=== PATIENT | male | born 1995 | race Caucasian/White ===

== ENCOUNTER 2016-08-22 22:21 | Emergency (ER) | payer OTHER ==
[2016-08-22 22:28] VITALS: BP 147/80; PULSE 93; RESP 20; TEMP 98.3
--- NOTE | 2016-08-22 23:20 | XR ---
EXAMINATION TYPE: XR chest 2V DATE OF EXAM: 08/22/2016 11:14 PM COMPARISON: NONE HISTORY: Chest pain TECHNIQUE: Frontal and lateral views of the chest are obtained. FINDINGS: Heart and mediastinum are normal. Lungs are clear. Diaphragm is normal. There are chest le ads. Bony thorax appears normal. IMPRESSION: Normal chest
--- NOTE | 2016-08-22 23:37 | ED ---
Chest Pain HPI - General Chief Complaint: Chest Pain Stated Complaint: chest pain/tingling arms Time Seen by Provider: 08/22/16 22:36 Source: patient Mode of arrival: wheelchair Limitations: no limitations - History of Present Illness Initial Comments: 20-year-old male with past medical history of a heart murmur presented for evaluation of sudden onset substernal sharp chest pain with radiation to his left arm that occurred while he was cooking. He states that it lasted 3-4 minutes and resolved into a dull ache without radiation. He states there is associated nausea and mild shortness of breath and feeling of exhaustion. His mother was present for the event and kept advising the patient to come to the ED until he finally acquiesced and came to the ED for further evaluation. He states that his current symptoms are very minimal with a mild pressure in his substernal chest area. He otherwise has no other symptoms at this time. He has been evaluated in the past for heart murmur that he had as a child which progressively decreased until resolution about 10 or more years ago. He states that at that time he had been placed on a heart monitor which revealed no significant abnormalities. - Related Data Home Medications Medication Instructions Recorded Confirmed Aspirin EC [Ecotrin Low Dose] 81 mg PO DAILY PRN 08/22/16 08/22/16 Allergies Allergy/AdvReac Type Severity Reaction Status Date / Time Penicillins Allergy Anaphylaxis Verified 08/22/16 22:41 Review of Systems ROS Statement: Those systems with pertinent positive or pertinent negative responses have been documented in the HPI. ROS Other: All systems not noted in ROS Statement are negative. Constitutional: Denies: fever, chills Eyes: Denies: eye discharge, vision change ENT: Denies: ear pain, throat pain Respiratory: Reports: dyspnea. Denies: cough, wheezes, hemoptysis, stridor Cardiovascular: Reports: chest pain. Denies: palpitations, dyspnea on exertion Gastrointestinal: Reports: nausea. Denies: abdominal pain, vomiting Genitourinary: Denies: urgency, dysuria Musculoskeletal: Denies: back pain, joint swelling Skin: Denies: rash, lesions Neurological: Denies: headache, weakness Psychiatric: Denies: anxiety, depression Hematological/Lymphatic: Denies: easy bruising, swollen glands EKG Findings - EKG Comments: EKG Findings:: EKG shows normal sinus rhythm with an incomplete right bundle branch block with a ventricular rate of 87, ALEXANDER 154, QRS 104, QTC 435 Past Medical History Additional Past Medical History / Comment(s): heart murmur History of Any Multi-Drug Resistant Organisms: None Reported Past Surgical History: No Surgical Hx Reported Past Psychological History: No Psychological Hx Reported Smoking Status: Never smoker Past Alcohol Use History: None Reported Past Drug Use History: None Reported General Exam Limitations: no limitations General appearance: alert, in no apparent distress Head exam: Present: atraumatic, normocephalic Eye exam: Present: normal appearance, PERRL, EOMI ENT exam: Present: normal exam, normal oropharynx, mucous membranes moist. Absent: mucous membranes dry Neck exam: Present: normal inspection. Absent: tenderness, meningismus Respiratory exam: Present: normal lung sounds bilaterally. Absent: respiratory distress, wheezes, rales Cardiovascular Exam: Present: regular rate, normal rhythm. Absent: bradycardia , tachycardia, irregular rhythm GI/Abdominal exam: Present: soft. Absent: distended, tenderness, guarding Rectal exam: Present: deferred Extremities exam: Present: normal inspection, full ROM, tenderness Back exam: Present: normal inspection, full ROM Neurological exam: Present: alert, altered, oriented X3, normal gait Psychiatric exam: Present: normal affect, normal mood Skin exam: Present: warm, dry, intact Course Vital Signs 08/22/16 22:26 Temperature 98.3 F Pulse Rate 93 Respiratory 20 Rate Blood Pressure 147/80 O2 Sat by Pulse 97 Oximetry Chest Pain [facility] 20-year-old male with past medical history of heart murmur that is since resolved present for evaluation of 3-4 minutes of sudden onset sharp substernal chest pain that is resolved prior to arrival to the ED. Physical examination reveals a well-appearing, non-anxious, 20-year-old male with normal peripheral pulses, normal heart sounds without murmurs rubs or gallops, and clear lung sounds. The patient does not meet any perc criteria and therefore further workup for PE is not necessary. EKG shows an incomplete right bundle branch block but no indications for any other abnormalities. Chest x-ray shows no acute process. This is discussed with the patient and through shared decision making it was decided that he would be discharged with instructions to follow-up with his primary care physician but return to this facility if his symptoms should worsen or persist. The patient and his mother acknowledged an understanding of this information and agreed with this plan of care. Disposition Clinical Impression: Non-cardiac chest pain Disposition: HOME SELF-CARE Condition: Stable Instructions: Chest Pain (ED) Referrals: Meir Alaniz MD [Primary Care Provider] - 1-2 days Time of Disposition: 23:37
== END 2016-08-22 23:49 | disposition home or self-care (01) ==
LOC: EC 22:21
DX: R07.89 Other chest pain (principal); I45.10 Unspecified right bundle-branch block; R01.1 Cardiac murmur, unspecified; Z79.82 Long term (current) use of aspirin; R11.0 Nausea; R06.02 Shortness of breath; R53.83 Other fatigue; Z88.0 Allergy status to penicillin
CPT/HCPCS: 71020; 93005; 99285

== ENCOUNTER 2017-10-02 18:34 | Emergency (ER) | payer OTHER ==
[2017-10-02] MEDS ORDERED: ACETAMINOPHEN TAB 500 MG TAB PO STA (20:25)
[2017-10-02 20:45] LABS: Basophils % (A) 1 %; Eosinophils # (A) 0.1 k/uL (0-0.7); Eosinophils % (A) 2 %; HCT 41.7 % (39.0-53.0); HGB 14.4 gm/dL (13.0-17.5); Lymphocytes # (A) 0.9 k/uL (1.0-4.8); Lymphocytes % (A) 19 %; MCH 27.5 pg (25.0-35.0); MCHC 34.5 g/dL (31.0-37.0); MCV 79.7 fL (80.0-100.0); Mean Platelet Volume 7.1; Monocytes # (A) 0.4 k/uL (0-1.0); Monocytes % (A) 8 %; Neutrophils # (A) 3.2 k/uL (1.3-7.7); Neutrophils % (A) 66 %; Platelet Count 211 k/uL (150-450); RBC 5.23 m/uL (4.30-5.90); RDW 13.3 % (11.5-15.5); WBC 4.8 k/uL (3.8-10.6)
[2017-10-02 20:58] LABS: Anion Gap 14 mmol/L; Blood Urea Nitrogen 15 mg/dL (9-20); Calcium 9.3 mg/dL (8.4-10.2); Carbon Dioxide 24 mmol/L (22-30); Chloride 103 mmol/L (98-107); Glucose 91 mg/dL (74-99); Potassium 4.1 mmol/L (3.5-5.1); Sodium 141 mmol/L (137-145)
[2017-10-02 21:05] LABS: Appearance,Urine Clear (Clear); Bilirubin,Urine Negative (Negative); Blood,Urine Negative (Negative); Color,Urine Yellow; Glucose,Urine (UA) Negative (Negative); Ketones,Urine Negative (Negative); Leukocyte Esterase,Urine Negative (Negative); Nitrite,Urine Negative (Negative); PH, Urine 6.5 (5.0-8.0); Protein,Urine Negative (Negative); Specific Gravity,Urine 1.018 (1.001-1.035); Urobilinogen,Urine <2.0 mg/dL (<2.0)
--- NOTE | 2017-10-02 21:39 | ED ---
Fever HPI - General Chief Complaint: Fever Stated Complaint: Fever Time Seen by Provider: 10/02/17 19:39 Source: patient Mode of arrival: ambulatory Limitations: no limitations - History of Present Illness Initial Comments: 21-year-old male presented for evaluation of right inguinal lymphadenopathy. He states that he first noticed this yesterday and was evaluated at the [facility] room where he had an ultrasound performed. Ultrasound determined that this was a lymph node that was independently enlarged. There is no abdominal contents noted in the inguinal canal however he states that he was not checked for a hernia. He states his symptoms have continued and today he started feel febrile. He had been informed by the [facility] staff to return to an ER if he should become febrile among other symptoms. He states otherwise he feels fine and denies any recent illnesses, risky sexual contact, penile inguinal or groin lesions, or penile discharge. He states there are no other enlarged lymph nodes across his entire body - Related Data Home Medications Medication Instructions Recorded Confirmed Ibuprofen [Advil] 600 mg PO Q8HR PRN 10/02/17 10/02/17 Previous Rx's Medication Instructions Recorded Doxycycline Hyclate 100 mg PO BID #20 tab 10/02/17 Allergies Allergy/AdvReac Type Severity Reaction Status Date / Time Penicillins Allergy Anaphylaxis Verified 10/02/17 19:52 Review of Systems ROS Statement: Those systems with pertinent positive or pertinent negative responses have been documented in the HPI. ROS Other: All systems not noted in ROS Statement are negative. Constitutional: Reports: fever (T-max prior to arrival 101F). Denies: chills Eyes: Denies: eye pain, vision change ENT: Denies: ear pain, throat pain Respiratory: Denies: cough, dyspnea Cardiovascular: Denies: chest pain, palpitations Endocrine: Denies: fatigue, polydipsia, polyuria Gastrointestinal: Denies: abdominal pain, nausea, vomiting Genitourinary: Reports: other (Enlarged right inguinal lymph node). Denies: urgency, dysuria Musculoskeletal: Denies: back pain, arthralgia, myalgia Skin: Denies: rash, lesions Neurological: Denies: headache, weakness Psychiatric: Denies: anxiety, depression Hematological/Lymphatic: Reports: swollen glands. Denies: easy bleeding, easy bruising Past Medical History Additional Past Medical History / Comment(s): heart murmur History of Any Multi-Drug Resistant Organisms: None Reported Past Surgical History: No Surgical Hx Reported Past Psychological History: No Psychological Hx Reported Smoking Status: Never smoker Past Alcohol Use History: None Reported Past Drug Use History: None Reported General Exam Limitations: no limitations General appearance: alert, in no apparent distress Head exam: Present: atraumatic, normocephalic, normal inspection Eye exam: Present: normal appearance, PERRL, EOMI. Absent: scleral icterus, conjunctival injection, periorbital swelling ENT exam: Present: normal exam, mucous membranes moist Neck exam: Present: normal inspection. Absent: tenderness, meningismus, lymphadenopathy Respiratory exam: Present: normal lung sounds bilaterally. Absent: respiratory distress, wheezes, rales, rhonchi, stridor Cardiovascular Exam: Present: normal rhythm, tachycardia GI/Abdominal exam: Present: soft, normal bowel sounds. Absent: distended, tenderness, guarding, rebound, rigid Rectal exam: Present: deferred exam: Present: normal inspection, circumcision, other (enlarged single right inguinal lymph node. There are no protruding abdominal contents into the right inguinal canal however he does have a hernia noted with cough.). Absent: testicular tenderness, urethral discharge, scrotal swelling, vertical testicular lie Extremities exam: Present: normal inspection, full ROM, normal capillary refill. Absent: tenderness, pedal edema, joint swelling, calf tenderness Back exam: Present: normal inspection, full ROM Neurological exam: Present: alert, oriented X3, CN II-XII intact Psychiatric exam: Present: normal affect, normal mood Skin exam: Present: warm, dry, intact, normal color. Absent: rash Course Vital Signs 10/02/17 10/02/17 18:42 21:45 Temperature 100.6 F H 98.2 F Pulse Rate 110 H 85 Respiratory 20 18 Rate Blood Pressure 136/87 134/62 O2 Sat by Pulse 97 98 Oximetry Medical Decision Making - Medical Decision Making 21-year-old male presenting for evaluation of enlarged right inguinal lymph node. He is Terrence been evaluated at the [facility] however he presents today due to having a concurrent fever. Ultrasound yesterday showed that this was a lymph node and not abdominal contents protruding through a hernia. On physical examination the patient does have a right inguinal hernia however the lymph node is located away from the canal and is mobile. There are no other enlarged lymph nodes in the groin or in any other identifiable location on the patient's chest, axillary area, supra clavicular, and cervical. Labs revealed no significant abnormalities and the patient remained asystematic on reevaluation. He was given Tylenol for fever and a perception for antibiotics for lymphadenopathy. Advised follow-up with his primary care physician and given strict return instructions if his symptoms should worsen or persist over the weekend. The patient acknowledged an understanding of all information provided and agreed with this plan of care. - Lab Data Result diagrams: 10/02/17 20:35 10/02/17 20:35 Lab Results 10/02/17 10/02/17 10/02/17 Range/Units 20:35 20:35 20:49 WBC 4.8 (3.8-10.6) k/uL RBC 5.23 (4.30-5.90) m/uL Hgb 14.4 (13.0-17.5) gm/dL Hct 41.7 (39.0-53.0) % MCV 79.7 L (80.0-100.0) fL MCH 27.5 (25.0-35.0) pg MCHC 34.5 (31.0-37.0) g/dL RDW 13.3 (11.5-15.5) % Plt Count 211 (150-450) k/uL Neutrophils % 66 % Lymphocytes % 19 % Monocytes % 8 % Eosinophils % 2 % Basophils % 1 % Neutrophils # 3.2 (1.3-7.7) k/uL Lymphocytes # 0.9 L (1.0-4.8) k/uL Monocytes # 0.4 (0-1.0) k/uL Eosinophils # 0.1 (0-0.7) k/uL Basophils # 0.0 (0-0.2) k/uL Sodium 141 (137-145) mmol/L Potassium 4.1 (3.5-5.1) mmol/L Chloride 103 (98-107) mmol/L Carbon Dioxide 24 (22-30) mmol/L Anion Gap 14 mmol/L BUN 15 (9-20) mg/dL Creatinine 0.91 (0.66-1.25) mg/dL Est GFR (CKD-EPI)AfAm >90 (>60 ml/min/1.73 sqM) Est GFR (CKD-EPI)NonAf >90 (>60 ml/min/1.73 sqM) Glucose 91 (74-99) mg/dL Calcium 9.3 (8.4-10.2) mg/dL Urine Color Yellow Urine Appearance Clear (Clear) Urine pH 6.5 (5.0-8.0) Ur Specific Indian 1.018 (1.001-1.035) Urine Protein Negative (Negative) Urine Glucose (UA) Negative (Negative) Urine Ketones Negative (Negative) Urine Blood Negative (Negative) Urine Nitrite Negative (Negative) Urine Bilirubin Negative (Negative) Urine Urobilinogen <2.0 (<2.0) mg/dL Ur Leukocyte Esterase Negative (Negative) Disposition Clinical Impression: Inguinal lymphadenopathy, Right inguinal hernia Disposition: HOME SELF-CARE Condition: Stable Instructions: Fever in Adults (ED), Inguinal Hernia (ED) Additional Instructions: Please use medication as discussed. Please follow up with family doctor if symptoms have not improved over the next two days. Please return to the emergency room if your symptoms increase or worsen or for any other concerns. Prescriptions: Doxycycline Hyclate 100 mg PO BID #20 tab Referrals: Meir Alaniz MD [Primary Care Provider] - 1-2 days Time of Disposition: 21:39
[2017-10-02 21:55] VITALS: BP 134/62; PULSE 85; RESP 18; TEMP 98.2
== END 2017-10-02 21:45 | disposition home or self-care (01) ==
LOC: EC 18:34
DX: K40.90 Unilateral inguinal hernia, without obstruction or gangrene, not specified as recurrent (principal); R59.0 Localized enlarged lymph nodes; Z88.0 Allergy status to penicillin
CPT/HCPCS: 36415; 80048; 81003; 85025; 99284